=== PATIENT | male | born 1995 | race Caucasian/White ===

== ENCOUNTER 2017-12-13 19:50 | Emergency (ER) | payer SELFPAY ==
--- NOTE | 2017-12-13 19:54 | EDPHY ---
H & P Stated Complaint: L Hand Burn Time Seen by Provider: 12/13/17 19:54 HPI/ROS: HPI CHIEF COMPLAINT: Burn to left hand HISTORY OF PRESENT ILLNESS: Patient otherwise healthy 22-year-old male, presents emergency room with a burn to his left hand. He sustained this while making hot coffee. He is unsure the coughing was boiling. If this is splash burn to the palmar side of his left hand. Complains of 6/10 pain. He denies any other areas of injury. States this happened 30 min ago. He reports that he is in a [facility] in rehab and was making coffee that then was Hospital on his left hand. Past Medical History: Denies significant medical history Past Surgical History: Denies significant surgical history Social History: History of alcohol use. In rehab currently. Family History: Noncontributory ROS REVIEW OF SYSTEMS: A comprehensive 10 point review of systems is otherwise negative aside from elements mentioned in the history of present illness. Exam Constitutional appears well nontoxic no acute distress triage nursing summary reviewed, vital signs reviewed, awake/alert. Eyes normal conjunctivae and sclera, EOMI, PERRLA. HENT normal inspection, atraumatic, moist mucus membranes, no epistaxis, neck supple/ no meningismus, no raccoon eyes. Respiratory clear to auscultation bilaterally, normal breath sounds, no respiratory distress, no wheezing. Cardiovascular rate normal, regular rhythm, no murmur, no edema, distal pulses normal. Gastrointestinal soft, non-tender, no rebound, no guarding, normal bowel sounds, no distension, no pulsatile mass. Genitourinary no CVA tenderness. Musculoskeletal no midline vertebral tenderness, full range of motion, no calf swelling, no tenderness of extremities, no meningismus, good pulses, neurovascularly intact. Skin left hand: Palmar side: There is a small less than 2 cm blister to the medial aspect palmar side of the 4th digit, additionally there is some erythema to the palm of the left hand. No other significant blisters. No 3rd degree burn. Neurovascularly intact. No significant swelling. No evidence of compartment syndrome. Good cap refill good radial pulse. pink, warm, & dry, no rash, Neurologic awake, alert and oriented x 3, AAOx3, moves all 4 extremities equally, motor intact, sensory intact, CN II-XII intact, normal cerebellar, normal vision, normal speech. Psychiatric normal mood/affect. Heme/Lymph/Immune no lymphadenopathy. Differential Diagnosis: Includes but is not limited to in a particular order thermal burn, splash burn, second-degree burn partial-thickness with blister Medical Decision Making: Plan for this patient ice pack, ibuprofen 800 for pain control and re-evaluate. Re-evaluation: 2141: Patient was given anti-inflammatory pain medicine here in emergency room. Additionally ice pack. His pain is well controlled now. I did re-evaluate him there is no evidence of compartment syndrome or significant hand swelling. There is 1 small blister on the 3rd digit. I recommend cool compresses tonight. Will place him in a dry dressing. He understands watch for signs of infection. If he has worsening pain, swelling, drainage, or further concerns about his burn he should return emergency room. Additionally I did give him a burn follow -up referral to the burn clinic for recheck. He understands he should follow up with them in the next 2 days. Recheck. Additionally return emergency room if there is worsening symptoms questions concerns comfortable this plan. Source: Patient - Personal History Current Tetanus Diphtheria and Acellular Pertussis (TDAP): Yes - Medical/Surgical History Hx Asthma: No Hx Chronic Respiratory Disease: No Hx Diabetes: No Hx Cardiac Disease: No Hx Renal Disease: No Hx Cirrhosis: No Hx Alcoholism: No Hx HIV/AIDS: No Hx Splenectomy or Spleen Trauma: No Other PMH: Denies - Social History Smoking Status: Never smoked Constitutional: Initial Vital Signs Temperature (C) 36.6 C 12/13/17 19:52 Heart Rate 78 12/13/17 19:52 Respiratory Rate 18 12/13/17 19:52 Blood Pressure 161/91 H 12/13/17 19:52 O2 Sat (%) 97 12/13/17 19:52 O2 Delivery Mode Room Air Allergies/Adverse Reactions: No Known Allergies Allergy (Unverified 12/13/17 19:51) Home Medications: Medication Instructions Recorded Ibuprofen [Motrin (*)] 800 mg PO Q6-8PRN #14 tab 12/13/17 Naltrexone 12/13/17 Zoloft 100mg (*) 12/13/17 Medical Decision Making - Data Points Medications Given: Discontinued Medications Ibuprofen (Motrin) 800 mg PO EDNOW ONE Stop: 12/13/17 20:02 Last Admin: 12/13/17 20:03 Dose: 800 mg Departure - Departure Disposition: Home, Routine, Self-Care Clinical Impression: Burn, hands, second degree Qualifiers: Encounter type: initial encounter Burn of hand location: palm Laterality: left Qualified Code(s): T23.252A - Burn of second degree of left palm, initial encounter Condition: Good Instructions: Second Degree Burn (ED), Acute Wounds (ED) Additional Instructions: 1. Return emergency room if you have worsening pain swelling or questions or concerns about her burn. 2. Please follow up with burn clinic. Call for follow-up appointment. 3. Return emergency room if there is worsening symptoms questions or concerns. 4. Follow up with Burn Clinic. Call for appointment. [address] [place] [address], [address] [place] [address] Referrals: NONE *PRIMARY CARE P,. [Primary Care Provider] - As per Instructions Prescriptions: Ibuprofen [Motrin (*)] 800 mg PO Q6-8PRN #14 tab
[2017-12-13] MEDS ORDERED: IBUPROFEN 800 MG TAB PO ONE (20:01)
[2017-12-13 21:49] VITALS: BP 132/77
== END 2017-12-13 21:48 | disposition home or self-care (01) ==
DX: T23.252A Burn of second degree of left palm, initial encounter (principal); T31.0 Burns involving less than 10% of body surface; X10.0XXA Contact with hot drinks, initial encounter; Y99.8 Other external cause status; Y93.89 Activity, other specified